=== PATIENT | male | born 1985 | race Caucasian/White ===

== ENCOUNTER 2020-03-25 23:28 | Emergency (ER) | payer MEDICAID ==
[~2020-03-25] VITALS: Ht 172.7 cm; Wt 74.8 kg
[2020-03-25 23:39] VITALS: Ht 172.7 cm; Wt 74.8 kg
[2020-03-26 04:00] VITALS: BP 101/66
== END 2020-03-26 04:00 | disposition home or self-care (01) ==
LOC: ED 23:28
DX: S01.81XA Laceration without foreign body of other part of head, initial encounter (principal); Y04.2XXA Assault by strike against or bumped into by another person, initial encounter; Y93.89 Activity, other specified; Y92.89 Other specified places as the place of occurrence of the external cause; Y99.0 Civilian activity done for income or pay
CPT/HCPCS: J2001

== ENCOUNTER 2020-03-31 19:45 | Emergency (ER) | payer MEDICAID ==
[~2020-03-31] VITALS: Ht 170.2 cm; Wt 73.0 kg
[2020-03-31 19:52] VITALS: BP 117/78; Ht 170.2 cm; Wt 73.0 kg
== END 2020-03-31 20:21 | disposition home or self-care (01) ==
LOC: ED 19:45
DX: S05.41XD Penetrating wound of orbit with or without foreign body, right eye, subsequent encounter (principal); X58.XXXD Exposure to other specified factors, subsequent encounter